=== PATIENT | male | born 1990 | race Asian ===

== ENCOUNTER 2024-06-18 21:54 | Emergency (ER) | payer OTHER ==
[~2024-06-18] VITALS: Ht 167.6 cm; Wt 80.0 kg
[2024-06-18 23:18] VITALS: BP 120/67; PULSE 80; RESP 16; TEMP 98; O2SAT 98
[2024-06-18] MEDS: PERTUSS(ACELL),DIPH,TET/PF 0.5 ML SYRINGE [ADULT] IM. ONE (23:24)
== END 2024-06-18 23:29 | disposition home or self-care (01) ==
LOC: EMS 21:58
DX: S51.851A Open bite of right forearm, initial encounter (principal); Z23 Encounter for immunization; W54.0XXA Bitten by dog, initial encounter; Y93.89 Activity, other specified; Y92.89 Other specified places as the place of occurrence of the external cause; Y99.8 Other external cause status
CPT/HCPCS: 90471; 90715; 99283